=== PATIENT | male | born 1975 | race Caucasian/White ===

== ENCOUNTER 2021-08-30 21:15 | Emergency (ER) | payer MEDICAID ==
[~2021-08-30] VITALS: Ht 177.8 cm; Wt 108.9 kg
[2021-08-30 22:23] VITALS: BP_SYST 133
[2021-08-30] MEDS ORDERED: HYDROcodone/ACETAMIN 5-325 MG TAB (NORCO/ VICODIN) PO ONE (22:45)
[2021-08-30] MEDS ORDERED: IBUPROFEN 800 MG TABLET PO ONE (22:45)
[2021-08-30] MEDS ORDERED: IBUPROFEN 800 MG TABLET ONE (22:46)
[2021-08-30] MEDS ORDERED: HYDROcodone/ACETAMIN 5-325 MG TAB (NORCO/ VICODIN) ONE (22:46)
[2021-08-30 23:22] LABS: MEAN CORPUSCULAR HEMOGLOBIN 29 pg (27-31); MEAN CORPUSCULAR HGB CONC 34 % (32-36); MONOCYTES # (AUTO) 0.5 K/uL (0.0-1.0)
[2021-08-30 23:26] LABS: BASOPHILS % (AUTO) 0.1 % (0.0-2.0); HEMOGLOBIN 15.3 g/dL (14.0-18.0); LYMPHOCYTES % (AUTO) 6.1 % (20.5-51.5); MEAN CORPUSCULAR VOLUME 86 fL (79.0-98.0); MONOCYTES % (AUTO) 3.2 % (1.7-9.3); NEUTROPHILS # (AUTO) 14.1 K/uL (1.8-7.7); NEUTROPHILS % (AUTO) 90.6 % (40.0-70.0); PLATELET COUNT (AUTO) 260 K/uL (130-430); RED BLOOD CELL COUNT(AUTO) 5.21 MIL/uL (4.2-6.2); RED CELL DISTRIBUTION WIDTH 13.7 % (9.0-15.0); WHITE BLOOD COUNT (AUTO) 15.6 K/uL (4.8-10.8)
[2021-08-30 23:34] LABS: CREATININE 0.96 mg/dL (0.55-1.30); POTASSIUM 4.2 mmol/L (3.5-5.1)
[2021-08-31] MEDS ORDERED: CLINDAMYCIN 900 mg/50mL D5W 50 ML IV ONE (01:00)
[2021-08-31 12:58] VITALS: BP_SYST 119
== END 2021-08-31 12:58 | disposition short-term general hospital (02) ==
LOC: SED 21:15
DX: K04.7 Periapical abscess without sinus (principal); Z20.822 Contact with and (suspected) exposure to COVID-19
CPT/HCPCS: 36415; 70487; 76376; 80048; 85025; 87426; 96365; 99285; J3490; Q9967

== ENCOUNTER 2021-11-22 14:45 | Emergency (ER) | payer MEDICAID ==
[~2021-11-22] VITALS: Ht 177.8 cm; Wt 111.1 kg
[2021-11-22 14:53] VITALS: BP_SYST 118
--- NOTE | 2021-11-22 17:23 | NUR ---
[facility] to gown for evaluation. Side rails up. Report given to VANESSA JONES
[2021-11-22] MEDS ORDERED: EPINEPHRINE HCL/PF 1 MG/ML AMP IM ONE (17:30)
--- NOTE | 2021-11-22 17:30 | NUR ---
Pt presents to the ER BIB self from home. CC Anaphylaxis-Itching of throat and swelling to right posterior bicep R/T bee sting. Pt notes was outdoors and saw a bee flying near his arm was stung. Pt is AAOx4 skin intact, even unlabored breathing, VSS. Hx Anaphylaxis to bee stings.
[2021-11-22] MEDS ORDERED: CLIN-22 PO (17:55)
[2021-11-22] MEDS ORDERED: DIPH25CA83 PO (17:55)
[2021-11-22] MEDS ORDERED: EPIN0.3P3 IM (18:17)
--- NOTE | 2021-11-22 18:25 | NUR ---
Patient given written and verbal discharge instructions and verbalizes understanding. ER MD discussed with patient the results and treatment provided. Patient in stable condition. ID arm band removed. Rx of cephelexin and benadryl given. Patient educated on pain management and to follow up with PMD. Opportunity for questions provided and answered. Medication side effect fact sheet provided.
[2021-11-22 18:34] VITALS: BP_SYST 148
== END 2021-11-22 18:34 | disposition home or self-care (01) ==
LOC: SED 14:45
DX: T78.2XXA Anaphylactic shock, unspecified, initial encounter (principal); T63.441A Toxic effect of venom of bees, accidental (unintentional), initial encounter; Z79.899 Other long term (current) drug therapy; X58.XXXA Exposure to other specified factors, initial encounter
CPT/HCPCS: 99283; 96372; J0171